=== PATIENT | female | born 1960 | race Caucasian/White ===

== ENCOUNTER 2020-03-08 06:52 | Outpatient (CLI) | payer OTHER ==
[2020-03-08 18:07] LABS: #Basophils 0.1 thou/uL (0.0-0.2); #Eosinphils 0.2 thou/uL (0.0-0.7); #Monocytes 0.3 thou/uL (0.11-0.59); #Neutrophils 3.7 thou/uL (1.40-6.50); %Basophils 0.9 % (0.0-1.0); %Lymphocytes 32.4 % (21.0-51.0); %Monocytes 4.9 % (0.0-10.0); %Neutrophils 58.8 % (42.0-75.0); Mean Corpuscular HGB CONC 34.1 g/dL (32.0-36.0); Mean Corpuscular Hemoglobin 32.9 pg (27.0-31.0); Mean Corpuscular Volume 96.5 fL (78.0-98.0); Mean Platelet Volume 8.7 fL (7.4-10.4); Platelet Count 262 thou/uL (130-400); RBC Distribution Width 11.8 % (11.5-14.5); Red Blood Cell (RBC) Count 4.24 mill/uL (4.20-5.40); White Blood Cell (WBC) Count 6.2 thou/uL (4.8-10.8)
[2020-03-08 18:17] LABS: Anion Gap 12 mmol/L (10-20); BUN (Urea Nitrogen) 20 mg/dL (9.8-20.1); Calc. Creatinine Clearance 0 mL/min (70-130); Calcium 9.4 mg/dL (7.8-10.44); Carbon Dioxide 24 mmol/L (22-29); Chloride 106 mmol/L (98-107); Estimated GFR-MDRD 57; Glucose 97 mg/dL (70-105); Potassium 4.1 mmol/L (3.5-5.1); Sodium 138 mmol/L (136-145)
[2020-03-09 11:33] LABS: SARS-CoV-2 MS2 Positive; SARS-CoV-2 N Gene Negative; SARS-CoV-2 S Gene Negative; SARS-CoV-2 orf1ab Negative
== END 2020-03-08 06:53 | disposition home or self-care (01) ==
LOC: LABBT 06:52
PROVIDERS: ATTEND Orthopaedic Surgery
DX: Z01.818 Encounter for other preprocedural examination (principal); Z11.59 Encounter for screening for other viral diseases; S43.401A Unspecified sprain of right shoulder joint, initial encounter
CPT/HCPCS: 80048; 85025; 87635; U0003

== ENCOUNTER 2020-03-13 07:22 | Day surgery (SDC) | payer OTHER ==
[2020-03-07 16:12] VITALS: BMI 25.0
[2020-03-13] MEDS ORDERED: Fentanyl 100 MCG/2 ML VIAL ONE ×2 (08:09→11:44)
[2020-03-13] MEDS ORDERED: Midazolam HCl 2 mg/2 ml Vial ONE (08:09)
[2020-03-13] MEDS ORDERED: Scopolamine 1.5 mg/72 hour Patch ONE (08:11)
[2020-03-13] MEDS ORDERED: Fentanyl 100 MCG/2 ML VIAL SLOW IVP PRN (08:38)
[2020-03-13] MEDS ORDERED: Acetaminophen 325 MG TAB PO PRN (08:38)
[2020-03-13] MEDS ORDERED: HYDROcodone/Acetaminophen 10/325 mg Tablet PO PRN ×2 (08:38)
[2020-03-13] MEDS ORDERED: traMADol HCl 50 MG TAB PO PRN ×2 (08:38)
[2020-03-13] MEDS ORDERED: Ondansetron PF 4 MG/2 ML Vial IVP PRN (08:38)
[2020-03-13] MEDS ORDERED: Ropivacaine 0.2% 550 ML 550 ML NERVE BLCK SCH (08:38)
[2020-03-13] MEDS ORDERED: Promethazine HCl 25 MG/ML VIAL IM PRN (08:38)
[2020-03-13] MEDS ORDERED: Zolpidem Tartrate 5 MG TAB PO PRN (08:38)
[2020-03-13] MEDS ORDERED: Lidocaine 1% w/Epinephrine 1:100K 20 ML VIAL ONE (10:20)
[2020-03-13] MEDS ORDERED: Ropivacaine 0.2% HCl/PF (40 MG/20 ML VIAL) ONE (11:16)
[2020-03-13] MEDS ORDERED: Ondansetron PF 4 MG/2 ML Vial ONE (11:16)
[2020-03-13] MEDS ORDERED: PROPOFOL 200 MG/20 ML VIAL ONE (11:16)
[2020-03-13] MEDS ORDERED: Ropivacaine 0.5% HCl/PF (150 MG/30 ML VIAL) ONE (11:16)
[2020-03-13] MEDS ORDERED: Ketorolac Tromethamine 30 MG/ML VIAL ONE (11:16)
[2020-03-13] MEDS ORDERED: Rocuronium Bromide 10 MG/ML (10ML VIAL) ONE (11:16)
[2020-03-13] MEDS ORDERED: Dexamethasone 20 MG/5 ML VIAL ONE (11:16)
--- NOTE | 2020-03-14 13:42 | OP ---
DATE OF PROCEDURE: 03/13/2020 PREOPERATIVE DIAGNOSES: 1. 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 2. Subacromial impingement. 3. Partial undersurface rotator cuff tear. POSTOPERATIVE DIAGNOSES: 1. 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 2. Subacromial impingement. 3. Partial undersurface rotator cuff tear. PROCEDURES PERFORMED: 1. Right shoulder arthroscopy with subacromial decompression. 2. Open biceps tenodesis. LEATHER [employer]T SHAPER: Van العراقي PA-C ESTIMATED BLOOD LOSS: Minimal. COMPLICATIONS: None. ANESTHESIA: She had general anesthetic. She also had a preoperative block. IMPLANTS: 7 x 23 Bio[employer]posite Bio-Tenodesis screw. DISPOSITION: She did go to recovery room in stable condition. INDICATIONS: A 59-year-old active female who comes in complaining of pain and catching with certain maneuvers. MRI was performed, was found to have a degenerative SLAP tear. At this time, she opted for surgery. DESCRIPTION OF PROCEDURE: After all appropriate consent forms were explained and signed, she was taken back to the operating room and at this time was given general anesthetic. Once the level of anesthesia was appropriate, she was rolled into the left lateral decubitus position with all bony prominences were well padded. Axillary roll was placed underneath the left axilla. Beanbag inflated to hold this position. The arm was then taken through full range of motion and suspended with 10 pounds in standard arthroscopic fashion. The right shoulder and upper extremity were then prepped and draped in standard surgical fashion. Bony anatomical landmarks were drawn out and the subacromial space was infiltrated with lidocaine which had epinephrine. Posterior portal was established. Scope was placed into the shoulder joint. Anterior working portal was then made using a needle localization technique. Diagnostic arthroscopy commenced in the joint. The articular cartilage of the humeral head and glenoid were in good condition. No loose bodies were noted in the axillary pouch. complex anteriorly. There was a small area anterior inferior along the edge of the cartilage were returned into the anterior labrum, where she had some damaged cartilage. There was no loose chondral flap at this time to treat. The inferior and posterior labrum were intact. Superior labrum was found to be detached. Biceps tendon was found to be unstable. Also have a flat appearance in the intra-articular portion as well as some synovitic changes . At this time, a green cannula was placed anteriorly. An 18-gauge needle was used to place the stitch in the biceps tendon. Biceps was then cut off its insertion onto the superior labrum. The rotator cuff itself was evaluated and there was found to be a partial tear in the beginning of the supraspinatus tendon, this was debrided and was found to maybe about 15% to 20% of the tendon itself. Scope was removed and repositioned into the subacromial space at this time. A lateral portal was made at this time. Bursa was removed from off the underlying cuff. Cuff itself was visualized, this was found to be intact. The patient did have significant anterior inferior acromial spur and a portion of this was removed using the SERFAS energy as well as the shaver. At this time, we then removed the scope and drained the shoulder. We then performed our biceps tenodesis. A 15 blade was used to make a small incision. Bovie was used to coagulate any brisk venous bleeding. Deltoid fascias were entered sharply and finger dissection was used to split the deltoid fibers in line to get down to the underlying transverse humeral ligament. This was opened up. Any brisk venous bleeding was coagulated with the Bovie. The tendon was brought out into the wound, then tendon was sutured and the intra-articular portion was removed from the field. We then placed our guide pin, reamed with a 7 mm reamer to a depth of 25 and placed a 7 x 23 [employer]posite Bio-Tenodesis screw. Sutures were tied over top of this, so the screw did not pass out. We then thoroughly irrigated and dried the wound. We allowed the deltoid to close upon itself. A running Vicryl was used to close the deltoid fascia, 2-0 Vicryl sutures were used to close the skin. Each portal was closed with a simple nylon stitch. Bulky sterile dressing was applied. At this time, the patient was awakened and taken to recovery room in stable condition. All counts were correct at the end the case and she did receive preoperative IV antibiotics. Job ID: [id number]
== END 2020-03-13 14:00 | disposition home or self-care (01) ==
LOC: SDC 07:22
PROVIDERS: ATTEND Orthopaedic Surgery
PROC: 0LS30ZZ Reposition Right Upper Arm Tendon, Open Approach (ICD-10-PCS; principal; 2020-03-13)
PROC: 0RBJ4ZZ Excision of Right Shoulder Joint, Percutaneous Endoscopic Approach (ICD-10-PCS; principal; 2020-03-13)
PROC: 0RHJ04Z Insertion of Internal Fixation Device into Right Shoulder Joint, Open Approach (ICD-10-PCS; principal; 2020-03-13)
DX: S43.431A Superior glenoid labrum lesion of right shoulder, initial encounter (principal); M75.111 Incomplete rotator cuff tear or rupture of right shoulder, not specified as traumatic; M25.811 Other specified joint disorders, right shoulder; F41.9 Anxiety disorder, unspecified; M19.90 Unspecified osteoarthritis, unspecified site; F31.9 Bipolar disorder, unspecified; Z79.899 Other long term (current) drug therapy; Z88.0 Allergy status to penicillin; W19.XXXA Unspecified fall, initial encounter; Y93.K1 Activity, walking an animal
CPT/HCPCS: A4306; C1713; J1100; J1885; J2250; J2405; J2704; J2795; J3010